=== PATIENT | male | born 1955 | race Caucasian/White ===

== ENCOUNTER 2020-12-26 07:56 | Day surgery (SDC) | payer OTHER, SELFPAY ==
[2020-12-18 20:18] VITALS: BMI 27.1
--- NOTE | 2020-12-24 14:49 | HO.ANESPROP2 ---
Documented by User: [email or web address] Medeiros 12/24/20 14:50 HPI - Anesthesia Eval Consult details Narrative: 65yo M for Colonoscopy FOR[facility]LY [facility], [facility] Past Medical History Medical History Arthritis Diabetes type 2, controlled Hyperlipidemia Hypertension Surgical History Surgical History H/O hernia repair (~1980) H/O right knee surgery History of colonoscopy History of hand surgery Social History Social History Patient Tobacco Use Status: Never used Tobacco Second Hand Smoke Exposure: No Use of substances other than those prescribed or required for medical reasons: No Substance Use Type Other:: PATIENT REPORTS NO SUBSTANCE ABUSE HISTORY BUT IN PHARMACY MED REC NARCAN Are you DNR?: No Advance Directives: No Advance Directives Information Provided: No Advance Directives on File: No Recently lost weight without trying: No Nutrition Risks: No Nutritional Risk Meds Allergies Allergy/AdvReac Type Severity Reaction Status Date / Time No Known Allergies Allergy Verified 12/18/20 20:15 Home Medications Medication Instructions Recorded Confirmed Last Taken Type atorvastatin 20 mg PO DAILY 12/18/20 12/18/20 Unknown History hydrochlorothiazide 25 mg PO DAILY 12/18/20 12/18/20 Unknown History ibuprofen 400 mg PO Q6H PRN 12/18/20 12/18/20 Unknown History lisinopril 40 mg PO DAILY 12/18/20 12/18/20 12/26/20 07:00 History metformin 2 tab PO BID 12/18/20 12/18/20 Unknown History Exam Exam Date and Time: December 24, 2020 1449 Height,Weight and Vital Signs: Height 5 ft 11 in Weight 88.451 kg Assessment and Plan Assessment Anesthesia Assessment: Chart Reviewed Documented by User: Meagan Parham 12/26/20 09:15 [facility], [facility] Past Medical History Medical History Arthritis Diabetes type 2, controlled Hyperlipidemia Hypertension Family History Family history of problems with anesthesia: No Surgical History Surgical History H/O hernia repair (~1979) H/O right knee surgery History of colonoscopy History of hand surgery History of Problems with Anesthesia: No Social History Social History Patient Tobacco Use Status: Never used Tobacco Second Hand Smoke Exposure: No Use of substances other than those prescribed or required for medical reasons: No Substance Use Type Other:: PATIENT REPORTS NO SUBSTANCE ABUSE HISTORY BUT IN PHARMACY MED REC NARCAN Are you DNR?: No Advance Directives: No Advance Directives Information Provided: No Advance Directives on File: No Recently lost weight without trying: No Nutrition Risks: No Nutritional Risk Meds Allergies Allergy/AdvReac Type Severity Reaction Status Date / Time No Known Allergies Allergy Verified 12/18/20 20:15 Home Medications Medication Instructions Recorded Confirmed Last Taken Type atorvastatin 20 mg PO DAILY 12/18/20 12/18/20 Unknown History hydrochlorothiazide 25 mg PO DAILY 12/18/20 12/18/20 Unknown History ibuprofen 400 mg PO Q6H PRN 12/18/20 12/18/20 Unknown History lisinopril 40 mg PO DAILY 12/18/20 12/18/20 12/26/20 07:00 History metformin 2 tab PO BID 12/18/20 12/18/20 Unknown History Exam Height,Weight and Vital Signs: Vital Signs Temp Pulse Resp BP Pulse Ox 12/26/20 08:34 96.9 F 82 18 133/76 99 Pertinent Lab Results Pertinent Lab Results: Lab Results 12/26/20 Range/Units 08:28 POC Glucose 153 H (60-115) mg/dL Airway Mallampati Class: II TM Dist: >3cm Neck ROM: Full Heart: RRR Lungs: CTAB Assessment and Plan Assessment Anesthesia Assessment: Anesthesia Plan Discussed and Chart Reviewed Final Anesthetic Review NPO: Yes ASA Class: II Final Preanesthetic Review: No Changes in Pt Med Stat, Meds/Allgs Chart Reviewed, Consent Obtained/Reviewed and Anes Risks/Benef Reviewed Patient Risk: Low Procedure Risk: Low Assessment/Block/Sedation in SS: Assess/Block/Sedation-SS Anesthetic Plan Anesthetic Plan: MAC: Disposition: Standard PACU
[2020-12-26 08:32] LABS: Glucose, Whole Blood 153 mg/dL (60-115)
[2020-12-26 08:34] VITALS: BP 133/76; PULSE 82; RESP 18; TEMP 36.1; O2SAT 99
[2020-12-26] MEDS: Lactated Ringers 1,000 ML 100 ML IVCONT (08:47)
--- NOTE | 2020-12-26 08:47 | MHC.SHP ---
Pre-Procedural Eval Section A The patient is an INPATIENT: No Section B Chief Complaint: screening Details of Present Illness: see H&P no changes Relevant Family History (Specify if Yes): No Relevant Social History: None Present Medications: see Short Stay Collaborative assessment Medical History: No relevant PMH History of Previous Operations: No relevant previous surgery Allergies: Allergies Allergy/AdvReac Type Severity Reaction Status Date / Time No Known Allergies Allergy Verified 12/18/20 20:15 Review of Systems Sugical H&P ROS: Negative: Constitution, Cardiovascular, Respiratory, Neurological, Psychiatric, Hem-Onc, Allergic/Immunologic, Gastrointestinal, Genitourinary, Musculoskeletal, Integumentary, Endocrine and Eyes/Ears/Nose/Throat Exam Surgical H&P Exam: Normal: HEENT, Normal: Heart, Normal: Lungs, Normal: Extremities, Normal: Abdomen, Normal: Skin and Normal: Neurological Plan Diagnosis/Plan: Unchanged I have reviewed the history and physical and performed a pertinent physical examination on my patient. No changes have occurred unless specified.
--- NOTE | 2020-12-26 09:18 | P.BOP_ITS ---
Brief Operative Note Date of Service: 12/26/20 Pre-op diagnosis: screening Post-op diagnosis: same Procedure: colo Surgeon: Ang Thorne Anesthesia: MAC Was an Helper/Driver used for this Procedure?: No Estimated blood loss (mL): 5 Pathology: other (polyps x2) Condition: stable Disposition: PACU
[2020-12-26 09:21] VITALS: BP 92/54; PULSE 67; RESP 12; TEMP 36.3; O2SAT 96
[2020-12-26 09:36] VITALS: BP 108/66; PULSE 79; RESP 16; O2SAT 99
--- NOTE | 2020-12-26 09:46 | OP_ITS ---
SURGEON: Ang Thorne MD INDICATIONS: Colon cancer screening. PREOPERATIVE DIAGNOSIS: POSTOPERATIVE DIAGNOSIS: PROCEDURE PERFORMED: Colonoscopy to the cecum with snare polypectomy and biopsy. ESTIMATED BLOOD LOSS: COMPLICATIONS: ANESTHESIA: Monitored anesthesia care. ASSISTANTS: SPECIMENS: DESCRIPTION OF PROCEDURE: History and physical performed. The risks and benefits of the procedure were explained to the patient, and informed consent was obtained. The patient was placed in the left lateral decubitus position. A digital rectal exam was performed and it was found to be normal. The Olympus pediatric video colonoscope was introduced into the rectum and advanced to the cecum without difficulty. The cecum was identified by transillumination, palpation, and identification of ileocecal valve. Examination was performed. The scope was removed. He tolerated the procedure well and was taken to recovery area in stable condition. FINDINGS: The terminal ileum was not examined. The visualized colonic mucosa was normal. The quality of prep was good. In the cecum, there was a 6 mm polyp, which was removed with a snare and recovered via suction. In the mid colon, at 55 cm, there was a less than 5 mm polyp, which was removed with biopsy forceps. No other polyps were identified. There was mild sigmoid diverticulosis. Retroflexed examination showed small internal hemorrhoids. IMPRESSION: Colon polyps. RECOMMENDATIONS: Follow up the biopsy results. MD MIKEY Salter/SHEN / [id number]
== END 2020-12-26 10:18 | disposition home or self-care (01) ==
PROVIDERS: PCP Family Medicine; Visit Provider Internal Medicine Gastroenterology
PROC: 0DJD8ZZ Inspection of Lower Intestinal Tract, Via Natural or Artificial Opening Endoscopic (ICD-10-PCS; CPT 45378; principal; 2020-12-26 09:00)
DX: Z12.11 Encounter for screening for malignant neoplasm of colon (principal); D12.0 Benign neoplasm of cecum; D12.5 Benign neoplasm of sigmoid colon; K57.30 Diverticulosis of large intestine without perforation or abscess without bleeding; K64.8 Other hemorrhoids; I10 Essential (primary) hypertension; E78.5 Hyperlipidemia, unspecified; M19.90 Unspecified osteoarthritis, unspecified site; E11.9 Type 2 diabetes mellitus without complications; Z79.84 Long term (current) use of oral hypoglycemic drugs; Z79.899 Other long term (current) drug therapy; Z79.1 Long term (current) use of non-steroidal anti-inflammatories (NSAID)
CPT/HCPCS: 45385; 45380; 82947; 88305